=== PATIENT | female | born 1970 | race Caucasian/White ===

== ENCOUNTER 2024-07-24 10:08 | Outpatient (OUT) | payer OTHER, SELFPAY | END 2024-07-24 10:09 | disposition home or self-care (01) | LOC: CARD 10:10 | PROVIDERS: PCP Nurse Practitioner Family; Visit Provider Nurse Practitioner Family | DX: R42 Dizziness and giddiness (principal); I49.9 Cardiac arrhythmia, unspecified; R00.0 Tachycardia, unspecified | CPT/HCPCS: 93242 ==